=== PATIENT | male | born 1975 | race Two or more races ===

== ENCOUNTER 2023-07-24 04:20 | Day surgery (SDC) | payer OTHER ==
[2023-07-21 15:18] VITALS: BMI 29.6
[2023-07-24 12:11] VITALS: TEMP 97.1
[2023-07-24 12:29] VITALS: PULSE 57
[2023-07-24 15:55] VITALS: BP 97/75; RESP 18
== END 2023-07-24 12:49 | disposition home or self-care (01) ==
LOC: JASU-ENDO 04:20
PROVIDERS: ATTEND Internal Medicine Gastroenterology
PROC: 0DB68ZX Excision of Stomach, Via Natural or Artificial Opening Endoscopic, Diagnostic (ICD-10-PCS; 2023-07-24)
PROC: 0DB78ZX Excision of Stomach, Pylorus, Via Natural or Artificial Opening Endoscopic, Diagnostic (ICD-10-PCS; 2023-07-24)
PROC: 0DJD8ZZ Inspection of Lower Intestinal Tract, Via Natural or Artificial Opening Endoscopic (ICD-10-PCS; principal; 2023-07-24 11:00)
DX: Z12.11 Encounter for screening for malignant neoplasm of colon (principal); K29.50 Unspecified chronic gastritis without bleeding
CPT/HCPCS: 88305-TC; 88342-TC